=== PATIENT | male | born 1945 | race African-American/Black ===

== ENCOUNTER → 2016-09-20 | Outpatient (CLI) | payer OTHER | END | disposition home or self-care (01) | LOC: PCVCCLINIC 11:31 | PROVIDERS: ATTEND Internal Medicine | DX: E11.9 Type 2 diabetes mellitus without complications (principal) | CPT/HCPCS: 80061; 93005; G0463 ==

== ENCOUNTER → 2017-04-16 | Outpatient (CLI) | payer OTHER ==
[~2017-04-16] MED LIST: REGADENOSON 0.4 MG/5 ML DISP.SYRIN. IV ONE
--- NOTE | 2017-04-16 14:22 | PCVCIMAG ---
APPROVED REPORT Study performed: 04/16/2017 13:22:51 EXAM: Comprehensive 2D, Doppler, and color-flow Echocardiogram Patient Location: Echo lab Status: routine BSA: 2.15 Rhythm: NSR Indications Hypertension. Hyperlipidemia. SOA. PSVT. Diabetes. 2D Dimensions LVEF(%): 74.22 (>50%) IVSd: 12.02 (7-11mm)LVOT Diam: 22.95 (18-24mm) LVDd: 50.13 mm LVPWs: 26.32 mm PWd: 8.68 (7-11mm)Ascending Ao: 31.92 (22-36mm) LVDs: 28.42 (25-40mm) Left Atrium: 39.86 (27-40mm) Aortic Root: 26.05 mm LV Single Plane 4CH: 57.92 % LV Single Plane 2CH: 65.52 %Hussein's LVEF: 61.72 % Biplane EF: 61.7 % Volumes Left Atrial Volume (Systole) Single Plane 4CH: 23.03 mLSingle Plane 2CH: 34.99 mL LA ESV Index: 13.00 mL/m2 Aortic Valve AoV Peak Fadi.: 1.23 m/s AO Peak Gr.: 6.06 mmHgLVOT Max P.19 mmHg LVOT Max V: 0.89 m/s DANNY Vmax: 3.00 cm2 Mitral Valve E/A Ratio: 1.4 MV Decel. Time: 193.13 ms MV E Max Fadi.: 0.82 m/s MV A Fadi.: 0.58 m/s Pulmonary Valve PV Peak Gr.: 1.90 mmHg Pulmonary Vein P Vein S: 0.53 m/sP Vein A: 0.27 m/s P Vein D: 0.33 m/sP Vein A Dur.: 107.3 msec P Vein S/D Ratio: 1.61 Tricuspid Valve TR Peak Fadi.: 2.78 m/s TR Peak Gr.: 30.92 mmHg Left Ventricle The left ventricle is normal size. There is normal LV segmental wall motion. There is normal left ventricular wall thickness. Left ventricular systolic function is normal. The left ventricular ejection fraction is within the normal range. LVEF is 55-60%. Grade I - abnormal relaxation pattern. Right Ventricle The right ventricle is normal size. The right ventricular systolic function is normal. Atria The left atrium size is normal. The right atrium size is normal. Aortic Valve The aortic valve is normal in structure. No aortic regurgitation is present. There is no aortic valvular stenosis. Mitral Valve The mitral valve is normal in structure. There is no mitral valve regurgitation noted. No evidence of mitral valve stenosis. Tricuspid Valve The tricuspid valve is normal in structure. Trace tricuspid regurgitation. Pulmonary artery pressure is 38mmhg. Pulmonic Valve The pulmonary valve is normal in structure. There is no pulmonic valvular regurgitation. Great Vessels The aortic root is normal in size. IVC is normal in size and collapses with >50% inspiration Pericardium There is no pericardial effusion. <Conclusion> Left ventricular systolic function is normal. There is normal LV segmental wall motion. LVEF 55-60%. Grade I diastolic dysfunction The aortic valve is normal in structure. No aortic regurgitation or stenosis The mitral valve is normal in structure. No mitral insufficiency Pulmonary artery pressure could not be reliably ascertained There is no pericardial effusion.
== END | disposition home or self-care (01) ==
LOC: PCVCIMAG 13:16
PROVIDERS: ATTEND Internal Medicine
DX: I07.1 Rheumatic tricuspid insufficiency (principal); I10 Essential (primary) hypertension; E11.9 Type 2 diabetes mellitus without complications; E78.5 Hyperlipidemia, unspecified; I47.1 Supraventricular tachycardia; Z90.49 Acquired absence of other specified parts of digestive tract; Z79.84 Long term (current) use of oral hypoglycemic drugs; Z79.899 Other long term (current) drug therapy; Z88.5 Allergy status to narcotic agent
CPT/HCPCS: 93306; J2785

== ENCOUNTER → 2017-05-16 | Outpatient (CLI) | payer OTHER ==
[~2017-05-16] MED LIST changes: +DIAZEPAM 10 MG TABLET. ONE; +IOHEXOL 350 MG/ML 100 ML VIAL. ONE; +IOHEXOL 350 MG/ML 50 ML VIAL. ONE; +IV NORMAL SALINE 1000ML BAG 1,000 ML ONE; +LIDOCAINE 1% Multi-Dose 20 ML VIAL. ONE; +MIDAZOLAM HCL/PF 2 MG/2 ML VIAL. ONE; -REGADENOSON 0.4 MG/5 ML DISP.SYRIN. IV ONE; +fentaNYL PF VIAL 100 MCG/2 ML VIAL ONE
--- NOTE | 2017-05-16 14:06 | PCVCINTER ---
APPROVED REPORT Patient Details Patient Status: Out-Patient Room #: 3 The patient is a 71 year-old male Event Personnel Biju De Los Santos MD, Peewee Guo RN, Piotr Moeller RT(R)(), Alicja Sage RT(R), Wicho Arce MD Risk Factors Arterial HypertensionDysplipidemia (Type: 1), HypercholesterolemiaPhysical Activity, Diabetes (Control: Oral)Last Creatanine 1.2Tobacco History (Never) Previous Procedures/Diagnoses Hypertension, Diabetes, Arrhythmias - Supraventricular tachycardias->Sinus tachycardia (ST) Procedure Narrative The patient was brought electively to the Cardiac Catheterization Laboratory and was prepped and draped in a sterile manner. The right femoral was infiltrated with 1% Lidocaine subcutaneous anesthesia. A 6F sheath was inserted into the right femoral artery. Coronary angiography was performed using coronary diagnostic catheters. The right coronary system was accessed and visualized with a JR4 catheter. The left coronary system was accessed and visualized with a JL4 catheter. The left ventricle was accessed and visualized with a Angled 145 Pigtail catheter. Left ventriculogram was performed in BROWN projection. Pre-demployment femoral angiogram was performed . Closure device was deployed with a 6 Fr Mynx. Hemostasis was obtained with manual pressure following sheath removal without any complications. The patient tolerated the procedure well and there were no complications associated with the procedure. There was no hematoma. Coronary Angiography The patient's coronary anatomy is right dominant. Diagnostic Cath Left MainAngiographically normal LADMinimal plaquing in the midportion of the left anterior descending Diagonal 1Single, large trifurcating diagonal branch, angiographically normal CircumflexLarge in caliber. Mild proximal plaquing (10-20%) [id number], single marginal branch with mild 10-20% proximal plaquing Right CoronaryDominant. Angiographically normal R PDANormal, moderate sized posterior descending. Left Ventriculography The left ventricle is normal in size with normal contractility. The left ventricular ejection fraction is estimated to be 55-60%. Left ventricular wall motion abnormalities are not present. There is no mitral insufficiency. Hemodynamics The right atrial mean pressure is 13 mmHg. The right ventricular pressure is 115 mmHg. The pulmonary artery pressure is 115 mmHg with a mean of 13 mmHg. The mean pulmonary capillary wedge pressure is 13 mmHg. The aortic pressure is 126/52 mmHg with a mean of 87 mmHg. The left ventricular pressure is 120/6 mmHg with a mean of 11 mmHg. Conclusion 1. Normal global and regional left ventricular systolic function. Ejection fraction 65%. 2. Normal left main 3. Minimal scattered plaquing in the coronary tree. Right dominant circulation.
== END ==
LOC: PCVCINTER 11:16
PROVIDERS: ATTEND Internal Medicine
DX: I25.10 Atherosclerotic heart disease of native coronary artery without angina pectoris (principal); E11.9 Type 2 diabetes mellitus without complications; I10 Essential (primary) hypertension; E78.00 Pure hypercholesterolemia, unspecified
CPT/HCPCS: 93458; C1760; C1769; C1894; J1644; J2250; J3010; J7030; Q9967

== ENCOUNTER → 2017-11-13 | Outpatient (CLI) | payer OTHER | END | disposition home or self-care (01) | LOC: PCVCCLINIC 13:24 | DX: I10 Essential (primary) hypertension (principal); I47.1 Supraventricular tachycardia; E78.5 Hyperlipidemia, unspecified; E11.9 Type 2 diabetes mellitus without complications; Z79.899 Other long term (current) drug therapy; Z79.84 Long term (current) use of oral hypoglycemic drugs | CPT/HCPCS: 80061; 93005; G0463 ==

== ENCOUNTER → 2018-05-19 | Outpatient (CLI) | payer OTHER | END | disposition home or self-care (01) | LOC: PCVCCLINIC 13:31 | PROVIDERS: ATTEND Internal Medicine | DX: I10 Essential (primary) hypertension (principal); E78.5 Hyperlipidemia, unspecified; E11.9 Type 2 diabetes mellitus without complications; I47.1 Supraventricular tachycardia; R06.02 Shortness of breath; E78.00 Pure hypercholesterolemia, unspecified; Z79.84 Long term (current) use of oral hypoglycemic drugs | CPT/HCPCS: 80061; 93005; G0463 ==

== ENCOUNTER → 2019-06-30 | Outpatient (CLI) | payer OTHER | END | disposition home or self-care (01) | LOC: PCVCCLINIC 10:20 | PROVIDERS: ATTEND Internal Medicine | DX: I10 Essential (primary) hypertension (principal); E78.5 Hyperlipidemia, unspecified; R93.41 Abnormal radiologic findings on diagnostic imaging of renal pelvis, ureter, or bladder; E11.9 Type 2 diabetes mellitus without complications; I47.1 Supraventricular tachycardia; E78.00 Pure hypercholesterolemia, unspecified; Z90.49 Acquired absence of other specified parts of digestive tract; Z88.5 Allergy status to narcotic agent; Z79.84 Long term (current) use of oral hypoglycemic drugs; Z79.899 Other long term (current) drug therapy | CPT/HCPCS: 36415; 80061; 93005; G0463 ==